=== PATIENT | female | born 1990 | race Caucasian/White ===

== ENCOUNTER 2016-11-28 08:00 | Inpatient (IN) | payer BC ==
[2016-11-28] VITALS (28 sets, daily range): BP systolic 120–151; BP diastolic 65–87
[~2016-11-28] VITALS: Ht 162.6 cm; Wt 66.8 kg
[2016-11-28] MEDS ORDERED: PRENATAL TABLE1 EAC3 PO (08:53)
[2016-11-28] MEDS ORDERED: SYNTHROID50 MCG PO (08:54)
[2016-11-28] MEDS ORDERED: CLARITIN,ALAVAR10 MG PO (08:54)
[2016-11-28 09:20] LABS: EOSINOPHIL (%) 0.7 % (0-5); EOSINOPHIL COUNT 0.1 K/uL (0-0.3); HEMATOCRIT 33.3 % (36.0-46.0); IMMATURE GRANULOCYTE (%) 0.9 % (0.0-0.7); IMMATURE GRANULOCYTE COUNT 0.1 K/uL; LYMPHOCYTE COUNT 1.9 K/uL (1.0-2.8); MCH 31.9 PG (29.0-34.0); MCHC 34.5 G/DL (30.0-36.0); MCV 92.2 FL (83-99); MEAN PLAT.VOLUME 10.3 uM^3 (9.5-12.4); MONOCYTE (%) 6.1 % (3-12); MONOCYTE COUNT 0.6 K/uL (0-0.8); NEUTROPHIL (%) 72.7 % (45-76); PLATELET COUNT 187 K/uL (156-360); RBC DIS.WIDTH-CV 11.7 % (11.8-14.6); RBC DIS.WIDTH-SD 39.6 % (39-53); RED BLOOD COUNT 3.61 M/uL (3.80-5.20); WHITE BLOOD COUNT 9.6 K/uL (4.1-10.2)
[2016-11-28] MEDS ORDERED: IBUPROFEN800 MG PO (21:23)
[2016-11-29 01:10] VITALS: BP 128/58
[2016-11-29 07:22] VITALS: BP 124/74
[2016-11-29 16:17] VITALS: BP 130/79
[2016-11-29 22:46] VITALS: BP 131/76
[2016-11-30 07:18] VITALS: BP 142/88
[2016-11-30 15:18] VITALS: BP 149/88
== END 2016-11-30 17:20 | disposition home or self-care (01) | DRG 775 ==
LOC: LDRP-OP 08:00 → 2WEST 08:01 → LDRP-OP 08:36 → 2WEST 20:38
PROVIDERS: Advanced Practice Midwife; Obstetrics & Gynecology
PROC: 10E0XZZ Delivery of Products of Conception, External Approach (ICD-10-PCS; principal; 2016-11-28)
PROC: 3E033VJ Introduction of Other Hormone into Peripheral Vein, Percutaneous Approach (ICD-10-PCS; principal; 2016-11-28)
PROC: 00HU33Z Insertion of Infusion Device into Spinal Canal, Percutaneous Approach (ICD-10-PCS; principal; 2016-11-28)
PROC: 0KQM0ZZ Repair Perineum Muscle, Open Approach (ICD-10-PCS; principal; 2016-11-28)
PROC: 3E0R3CZ (ICD-10-PCS; principal; 2016-11-28)
PROC: 10907ZC Drainage of Amniotic Fluid, Therapeutic from Products of Conception, Via Natural or Artificial Opening (ICD-10-PCS; principal; 2016-11-28)
DX: O24.420 Gestational diabetes mellitus in childbirth, diet controlled (principal); O36.5930 Maternal care for other known or suspected poor fetal growth, third trimester, not applicable or unspecified; O63.0 Prolonged first stage (of labor); O70.1 Second degree perineal laceration during delivery; O69.81X0 Labor and delivery complicated by cord around neck, without compression, not applicable or unspecified; O99.284 Endocrine, nutritional and metabolic diseases complicating childbirth; E06.3 Autoimmune thyroiditis; E28.2 Polycystic ovarian syndrome; E03.9 Hypothyroidism, unspecified; Z3A.39 39 weeks gestation of pregnancy; Z37.0 Single live birth
CPT/HCPCS: 82948; 85025; C1755; J3010; J7120